=== PATIENT | female | born 1995 | race Two or more races ===

== ENCOUNTER 2023-04-16 16:25 | Emergency (ER) | payer OTHER ==
[~2023-04-16] VITALS: Ht 160 cm; Wt 158.8 kg
== END 2023-04-16 20:15 | disposition home or self-care (01) ==
LOC: ER 16:25
DX: K52.9 Noninfective gastroenteritis and colitis, unspecified (principal); R11.2 Nausea with vomiting, unspecified

== ENCOUNTER 2024-08-26 09:45 | Outpatient (CLI) | payer OTHER | END 2024-08-26 10:00 | disposition home or self-care (01) | LOC: PPH VACUNA 09:45 | PROVIDERS: ATTEND Emergency Medicine Pediatric Emergency Medicine | DX: Z23 Encounter for immunization (principal) ==